=== PATIENT | male | born 1970 | race Caucasian/White ===

== ENCOUNTER 2021-12-04 14:49 | Emergency (ER) | payer SELFPAY ==
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
[2021-12-04 14:58] VITALS: BP 134/69; PULSE 82; RESP 16; TEMP 36.2; O2SAT 99
== END 2021-12-04 16:46 | disposition short-term general hospital (02) ==
PROVIDERS: Emergency Provider Nurse Practitioner Family
DX: S72.011A Unspecified intracapsular fracture of right femur, initial encounter for closed fracture (principal); V18.4XXA Pedal cycle driver injured in noncollision transport accident in traffic accident, initial encounter
CPT/HCPCS: 73502; 99213; G0463

== ENCOUNTER 2022-11-09 11:25 | Emergency (ER) | payer BC, SELFPAY ==
[2022-11-09 11:32] VITALS: BP 141/88; PULSE 81; RESP 20; TEMP 36.8; O2SAT 98
--- NOTE | 2022-11-09 11:44 | ED.LOWEXIN ---
HPI - Extremity Injury (Lower) General Chief Complaint: Extremity Injury, Lower Stated Complaint: Right Knee Pain Source: patient and RN notes reviewed History of Present Illness HPI Narrative: 51 yo M presents to urgent care with complaints of right knee pain and swelling x 2 weeks. Pt states he has been told in the past he has a hx of arthritis in this knee. Denies any recent injury or trauma. Denies any calf pain, calf swelling, fevers, chills, numbness, or tingling. Related Data Allergies Allergy/AdvReac Type Severity Reaction Status Date / Time No Known Allergies Allergy Verified 11/09/22 11:38 Review of Systems Review of Systems: Pertinent positives and pertinent negatives per HPI. PMFSH Comments At the time of my signature, I reviewed and agree with the nursing past medical, surgical, social, and family history. There is no relevant family history pertinent to the patient complaint. Exam Narrative: GENERAL: This is a well-nourished, well-developed patient, in no apparent distress. HEAD: normocephalic, atraumatic. EYES: Sclera clear/white. Vision is grossly intact. EARS: External ears normal, auditory canals clear and without drainage. Hearing grossly intact. NOSE: External nose normal with no obvious nasal discharge, nares without redness, no rhinorrhea. THROAT: Mucous membranes moist, posterior pharynx clear. NECK: Neck supple, non-tender without lymphadenopathy, masses or thyromegaly. CARDIOVASCULAR: Regular rate RESPIRATORY: No respiratory distress SKIN: warm, intact with no suspicious lesions or rash, good texture and turgor. NEURO: awake, alert, and oriented to person, place and time. There were no obvious focal neurologic abnormalities. EXTREMITIES: Mild edema noted to right medial knee. No specific tenderness noted. BACK: Nontender without deformity or crepitance. No flank tenderness. Course Course Level of Care: Express Care Visit Vital Signs Vital signs: Vital Signs Temperature 98.2 F 11/09/22 11:32 Pulse Rate 81 11/09/22 11:32 Respiratory Rate 20 11/09/22 11:32 Blood Pressure 141/88 H 11/09/22 11:32 Pulse Oximetry 98 11/09/22 11:32 Oxygen Delivery Room Air 11/09/22 11:32 Temperature 98.2 F 11/09/22 11:32 Pulse Rate 81 11/09/22 11:32 Respiratory Rate 20 11/09/22 11:32 Blood Pressure 141/88 H 11/09/22 11:32 Pulse Oximetry 98 11/09/22 11:32 Oxygen Delivery Room Air 11/09/22 11:32 Reviewed MDM - Extremity Injury (Lower) MDM Narrative Medical decision making narrative: Use the RICE method at home. May take ibuprofen with the Vicodin if needed. Take the prednisone as directed. If symptoms persist in 1 week after conservative treatment, follow-up with specialist. Differential Diagnosis Differential diagnosis: Likely acute internal derangement of knee and other (Arthritis, sprain) Critical Care Time Critical Care Time Critical Care Time: No Discharge Plan Discharge Clinical Impression: Osteoarthritis Qualifiers: Osteoarthritis location: knee Osteoarthritis type: unspecified Laterality: right Qualified Code(s): M17.11 - Unilateral primary osteoarthritis, right knee Patient Disposition: Home, Self-Care Condition: Stable Instructions: Antibiotic Form, Arthritis (ED) Additional Instructions: Use the RICE method at home. May take ibuprofen with the Vicodin if needed. Take the prednisone as directed. If symptoms persist in 1 week after conservative treatment, follow-up with specialist. Prescriptions: New hydrocodone-acetaminophen 5-325 mg tablet 1 tablet PO Q6H PRN (Reason: pain) Qty: 14 0RF prednisone 20 mg tablet 40 mg PO DAILY 5 Days Qty: 10 0RF Follow-up/Referrals: Geronimo Perez MD [Physician] - PHYSICIAN,GUEST LAUNDRY ATTENDANT [Primary Care Provider] - Time of Disposition: 11:51
[2022-11-09] MEDS: predniSONE 20 MG TABLET 60 MG PO (11:54)
== END 2022-11-09 12:02 | disposition home or self-care (01) ==
PROVIDERS: Emergency Provider Nurse Practitioner Family
DX: M17.11 Unilateral primary osteoarthritis, right knee (principal)
CPT/HCPCS: 99213; G0463; J7512

== ENCOUNTER 2024-07-13 11:35 | Emergency (ER) | payer BC, SELFPAY ==
[2024-07-13 11:47] VITALS: BP 137/81; PULSE 98; RESP 20; TEMP 37.9; O2SAT 99
--- NOTE | 2024-07-13 12:44 | ED_ITS ---
HPI - URI/Sore Throat General Chief Complaint: Upper Respiratory Infection Stated Complaint: Ear and throat Time Seen by Provider: 07/13/24 12:30 Source: patient, RN notes reviewed and old records reviewed Mode of arrival: ambulatory Limitations: no limitations History of Present Illness HPI Narrative: 53 year old male presents to [facility] care with complaints of right ear pain and sore throat which started yesterday. Patient reports that he has used some OTC ear drops for his ear pain but they really haven't helped. Patient reports that he has not taken any OTC medications for his pain, Patient reports that he thinks he has had some fever but has not taken his temperature or taken any Tylenol or Ibuprofen. Patient reports that it does hurt to swallow. MD elicited complaint: sore throat Onset (ago): day(s) (day 2 of symptoms) Pain scale (0-10): 8 Able to tolerate fluids by mouth: Yes Treatments prior to arrival: other (OTC ear drops) Related Data Allergies Allergy/AdvReac Type Severity Reaction Status Date / Time No Known Allergies Allergy Verified 07/13/24 11:54 Review of Systems Review of Systems: CONSTITUTIONAL: Reports malaise, chills, sweats, or fever. EYES: Denies visual changes, redness, or discharge. ENT: Reports some rhinorrhea, congestion,no sinus pain, right otalgia and positive sore throat. CARDIOVASCULAR: Denies chest pain, palpitations, or edema. RESPIRATORY: Reports no cough.? Denies dyspnea. GASTROINTESTINAL: Denies abdominal pain, nausea, vomiting, diarrhea SKIN: Denies rash or itching. MUSCULOSKELETAL: Denies myalgia. NEUROLOGIC: Denies headache. All systems reviewed & are unremarkable except as noted in HPI and below PMFSH Comments At time of signature, agree with nursing past medical, surgical, social and family history. There is no relevant family history pertinent to the presenting complaint Exam Narrative: GENERAL: Well-appearing, well-nourished, and in no acute distress. HEAD: Normocephalic EYES: PERRLA, conjunctivae clear ENT: Nares clear, turbinates edematous and erythematous, clear discharge. Mucous membranes moist. TM pearly george with dull light reflex bilaterally; no tragal tenderness. Oropharynx erythematous without lesions. Tonsils red enlarged and without exudate, no drooling, no hoarseness, no trismus, uvula midline.post nasal drainage NECK: Supple. lymphadenopathy CHEST: Clear to auscultation, breath sounds equal. No wheezing, rhonchi, rales, or stridor. No respiratory distress, speaks in full sentences.SAO2 99% on room air HEART: Regular rate and rhythm. No murmur heard. SKIN: Warm, dry, no rash. NEURO: Alert and oriented x3. PSYCH: Normal mood and affect Course Course Emergency Course: Patient is aware of diagnosis, understands and agrees to treatment plan.? Anticipatory guidance given.? Patient agrees to follow-up as directed and is aware of reasons to seek care at the emergency department. Portions of this record may have been created with voice recognition software Level of Care: Express Care Visit Vital Signs Vital signs: Vital Signs Temperature 37.9 C H 07/13/24 11:47 Pulse Rate 98 07/13/24 11:47 Respiratory Rate 20 07/13/24 11:47 Blood Pressure 137/81 07/13/24 11:47 Pulse Oximetry 99 07/13/24 11:47 Oxygen Delivery Room Air 07/13/24 11:47 Temperature 37.9 C H 07/13/24 11:47 Pulse Rate 98 07/13/24 11:47 Respiratory Rate 20 07/13/24 11:47 Blood Pressure 137/81 07/13/24 11:47 Pulse Oximetry 99 07/13/24 11:47 Oxygen Delivery Room Air 07/13/24 11:47 Reviewed MDM - URI/Sore Throat MDM Narrative Medical decision making narrative: Differential diagnosis considered: Beard virus, strep pharyngitis, allergic rhinitis, upper respiratory tract infection, sinusitis, rhinosinusitis, nasopharyngitis. viral pharyngitis, otitis media, otitis externa, pneumonia, bronchitis, viral cough syndrome, viral syndrome, and influenza.? Exam findings show no acute concerns or changes; patient is non-toxic appearing and is in no distress.? Patient is appropriate for outpatient treatment and follow-up. Differential Diagnosis Differential diagnosis: Likely upper respiratory infection, otitis media, viral infection, pharyngitis and other (strep pharyngitis) Medical Records Attestation: I reviewed the patient's medical records. Lab Data Attestation: I reviewed the patient's lab results. Lab results narrative: strep screen positive Labs: Lab Results 07/13/24 Range/Units 11:56 POC Grp A Strep Screen Positive (Negative) reviewed Critical Care Time Critical Care Time Critical Care Time: No Discharge Plan Discharge Clinical Impression: Strep pharyngitis Patient Disposition: Home, Self-Care Condition: Stable Instructions: Antibiotic Form, Strep Throat (DC) Additional Instructions: You tested positive for Group A strep . Take the entire course of antibiotics. Throw away your current toothbrush and begin using a new toothbrush in 48 hours in order to prevent re-infection. Sanitize all reusable water bottles . Do not share items with others. Salt water gargles may alleviate some of the throat discomfort. You can take Tylenol or ibuprofen per the package instructions for pain/fever. A Zyrtec, Shelia. Or Claritin daily If your symptoms persist, change or worsen significantly before you can contact your personal physician then please, without delay, go to the emergency department for further evaluation. Follow-up with PCP in 7-10 days or sooner if needed Follow up with PCP soon in regards to your blood pressure which is elevated above threshold for referral. Blood pressure above 120/80 may indicate pre- hypertension. Patient Language: Somali Prescriptions: New amoxicillin 500 mg capsule 1,000 mg PO Q12H 10 Days Qty: 40 0RF methylprednisolone [Medrol (Maxi)] 4 mg tablets,dose pack See Rx Instructions .ROUTE .COMPLEX Qty: 21 0RF Rx Instructions: orally per package directions take with food ibuprofen 600 mg tablet 600 mg PO QID PRN (Reason: fever or pain) Qty: 20 0RF Rx Instructions: up to 4 time daily for pain or fever Follow-up/Referrals: PHYSICIAN,NETWORK SECURITY ANALYST [Primary Care Provider] - Time of Disposition: 12:50 Quality Hailey Coma Scale Eyes: Open Verbal: Oriented and Alert Motor: Follows Commands Otis Coma Total Score: 15
[2024-07-13 12:58] LABS: EDSTREPNEGPOS1 Positive (Negative)
== END 2024-07-13 12:56 | disposition home or self-care (01) ==
PROVIDERS: Emergency Provider Registered Nurse
DX: J02.0 Streptococcal pharyngitis (principal)
CPT/HCPCS: 87880; 99213; G0463

== ENCOUNTER 2025-05-10 13:57 | Emergency (ER) | payer BC, SELFPAY ==
--- NOTE | ~2025-05-10 | XR_ITS ---
Clinical history:Thumb injury EXAM:X-ray finger first left minimum 2 views TECHNIQUE:3 images of the thumb were obtained. Comparisons: FINDINGS: [ No significant degenerative change.] [ No radiographic evidence for an acute fracture or dislocation.] [ No radiopaque foreign body.] [ No sclerotic bone lesions.] Soft tissue swelling about the thumb. Indeterminant 4 x 3 mm lucency in the tuft of the distal phalanx of the thumb. IMPRESSION: 1. No fracture identified. If symptoms persist or worsen consider a short-term follow-up study or additional imaging for further assessment. Reviewed, dictated and finalized at location Q. IMPRESSION: 1. No fracture identified. If symptoms persist or worsen consider a short-term follow-up study or addition al imaging for further assessment.
[2025-05-10 13:58] VITALS: BP 163/86; PULSE 74; RESP 18; TEMP 37.1; O2SAT 99
[2025-05-10] MEDS: TETANUS,DIPHTHERIA,AC PERTUSSIS ADULT 0.5 ML (ADACEL) IM (14:31)
[2025-05-10] MEDS: LIDOCAINE 1% LOCAL INJ 10 ML VIAL INFILTRATE (14:32)
--- OUTSIDE RECORDS SUMMARY | 2025-05-10 14:58 | XMS_ITS | Clinical Summary ---
Author Organization [facility] al Address [address] [place] [address] Care Team Providers Care Event Lighting Specialist Name Role Phone No, Physician Primary Care Provider [phone] Allergies No known active allergies Medications senna-docusate (PERICOLACE) 8.6-50 mgIndications:co nstipation Take 2 tablets by mouth 2 (two) times a day for 14 days 56 tablet 12/06/2021 Active apixaban (ELIQUIS) 2.5 mg tabletIndication s:VTE Prophylaxis Following Ortho Surgery Take 1 tablet (2.5 mg total) by mouth 2 (two) times a day 60 tablet 12/06/2021 Active Active Problems Problem Noted Date Diagnosed Date Closed displaced fracture of left femoral neck 0 12/05/2021 Social History Tobacco Use Types Packs/Day Years Used Date Smoking Tobacco: Former Alcohol Use Standard Drinks/Week Comments Yes 0 (1 standard drink = 0.6 oz pur e alcohol) occassionally Sex and Gender Information Value Date Recorded Sex Assigned at Not on file 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 Gender Identity Not on file Sexual Orientation Not on file Obstetrics History Last Filed Vital Signs Vital Sign Reading Time Taken Comments Blood Pressure 120/72 12/06/2021 9:50 AM CDT Pulse 106 12/06/2021 9:50 AM CDT Temperature 36.6 C (97.9 F) 12/06/2021 9:50 AM CDT Respiratory Rate 21 12/06/2021 9:50 AM CDT Oxygen Saturation 92% 12/06/2021 9:50 AM CDT Inhaled Oxygen Concentration - - Weight 83.9 kg (185 lb) 12/04/2021 7:48 PM CDT Height 177.8 cm (5' 10) 12/04/2021 7:48 PM CDT Body Mass Index 26.54 12/04/2021 7:48 PM CDT Plan of Treatment Not on file Medical Devices Implanted Type Area Maintenance Mechanic Device Identifier Shelf Expiration Date Model / Serial / Lot Synthes 7.3mm 8.2mm 2.9mm 95mm 32mm Cannulated Self Tap Self Drill 209.895 - [id number] Implanted:Qty: 1 on 12/05/2021 by Bree Goldstein MD at [facility] Right: Hip Synthes I 209.895 / / Synthes 209.690 7.3mm 8.2mm 2.9mm 90mm Cannulated Self Tap Self Drill - [id number] Implanted:Qty: 1 on 12/05/2021 by Bree Goldstein MD at [facility] Right: Hip Synthes I 209.690 / / Synthes 04.168.490s 90mm Antirotate Screw Bone Sterile Femoral Neck System - [id number] Implanted:Qty: 1 on 12/05/2021 by Bree Goldstein MD at [facility] Right: Hip Synthes I 04.168.490S / / Synthes 04.168.290s 90mm Alanson External Fixation Sterile Femoral Neck System - [id number] Implanted:Qty: 1 on 12/05/2021 by Bree Goldstein MD at [facility] Right: Hip Synthes I 04.168.290S / / Synthes 412.218s 5mm 48mm Self Tap Lock Stardrive T25 Screw Bone Titanium Sterile - [id number] Implanted:Qty: 1 on 12/05/2021 by Bree Goldstein MD at [facility] Right: Hip Synthes I 412.218S / / Synthes 04.168.0005 Plate 130d Ti Niobium Aluminum Fem Neck System 1 Hole Bone - [id number] Implanted:Qty: 1 on 12/05/2021 by Bree Goldstein MD at [facility] Right: Hip Synthes I 04.168.000S / / Insurance IDPA IDPA IDPA Advance Directives For more information, please contact: [phone] * Full Code (Latest Code Status on File) Date Activated Date Inactivated Comments 12/05/2021 8:57 PM 12/06/2021 5:19 PM Care Teams Event Lighting Specialist Relationship Specialty Start Date End Date No, Physician PCP - General 12/06/21
--- OUTSIDE RECORDS SUMMARY | 2025-05-10 14:58 | XMS_ITS | Clinical Summary ---
Author Organization [facility] Address [address] [place] [address] Phone Care Team Providers Care Bilingual Manager Name Role Phone Provider, None Primary Care Provider Unavailabl e Allergies No known active allergies Medications No known medications Social History Tobacco Use Types Packs/Day Years Used Date Smoking Tobacco: Every Day Cigarettes Smokeless Tobacco: Never Alcohol Use Standard Drinks/Week Comments Yes 0 (1 standard drink = 0.6 oz pur e alcohol) socially Sex and Gender Information Value Date Recorded Sex Assigned at Not on file Legal Sex Male 11:23 PM CDT Gender Identity Not on file Sexual Orientation Not on file Last Filed Vital Signs Vital Sign Reading Time Taken Comments Blood Pressure 146/87 09/23/2018 6:54 PM CINDER CRUSHER OPERATOR Pulse 87 09/23/2018 6:54 PM CINDER CRUSHER OPERATOR Temperature 37.2 C (99 F) 09/23/2018 5:10 PM CINDER CRUSHER OPERATOR Respiratory Rate 18 09/23/2018 6:54 PM CINDER CRUSHER OPERATOR Oxygen Saturation 97% 09/23/2018 6:54 PM CINDER CRUSHER OPERATOR Inhaled Oxygen Concentration - - Weight 86.2 kg (190 lb) 09/23/2018 5:10 PM CINDER CRUSHER OPERATOR Height 177.8 cm (5' 10) 09/23/2018 5:10 PM CINDER CRUSHER OPERATOR Body Mass Index 27.26 09/23/2018 5:10 PM CINDER CRUSHER OPERATOR Plan of Treatment Not on file Care Teams Bilingual Manager Relationship Specialty Start Date End Date Provider, None [place] PCP - General 09/23/18
--- NOTE | 2025-05-10 15:00 | ED.WOUNDLAC ---
HPI - Wound/Laceration General Chief Complaint: Wound/Laceration Stated Complaint: laceration to left thumb Time Seen by Provider: 05/10/25 14:06 Source: patient Mode of arrival: ambulatory Limitations: no limitations History of Present Illness HPI narrative: This is a 54-year-old male with no significant past medical history of present with laceration and avulsion injury to the left medial thumb area after he was using milder saw. No other injuries no numbness or tingling has good range of motion to his left thumb. Onset (ago): hour(s) Extremity Location: Left: hand (Laceration and avulsion of the skin left thumb) Place: home Patient tetanus UTD: No Context: accidental Related Data Home Medications ?Medication ?Instructions ?Recorded ?Confirmed ?Last Taken ?Type No Home Medications 05/10/25 05/10/25 Unknown History Allergies Allergy/AdvReac Type Severity Reaction Status Date / Time No Known Allergies Allergy Verified 05/10/25 14:12 Review of Systems Review of Systems: All systems reviewed & are unremarkable except as noted in HPI and below PMFSH Past Medical History Medical History Patient denies medical problems Exam Const: General: healthy appearing Nutritional Appearance: well nourished Orientation/consciousness: patient oriented x3 Limitations: no limitations Resp: Effort & Inspection: normal respiratory effort Auscultation: clear to auscultation bilaterally Cardio: Rate: regular rate Rhythm: regular rhythm GI: GI Palp: Yes Soft to palpation Auscultation: normal bowel sounds Skin: Wounds: wounds noted Other: Laceration to the medial left thumb with an avulsion injury to the skin Neuro: General: patient oriented x3 and moves all extremities Extrem: Other: Wounds noted to the left thumb Course Course Emergency Course: Medical decision making narrative: The patient was evaluated by myself in the emergency department. History obtained from patient who is an independent historian and physical exam performed in witnessed by nurse. Repeat assessment. Patient did have an x-ray performed which showed no acute injury to any bony structure. Patient had the area irrigated and no debris was was found. Patient had 10cc of lidocaine instilled into the laceration and avulsion area. Two sutures were placed in the laceration area and the rest was an avulsion injury and triple antibiotic ointment was administered. Patient was updated with his tetanus. Patient agrees with discussion after shared medical decision-making and agrees with discharge. All questions answered to the patient's satisfaction. Advised follow-up with his primary within 8 days for for suture removal. Vital Signs Vital signs: Vital Signs Temperature 37.1 C 05/10/25 13:58 Pulse Rate 74 05/10/25 13:58 Respiratory Rate 18 05/10/25 13:58 Blood Pressure 163/86 H 05/10/25 13:58 Pulse Oximetry 99 05/10/25 13:58 Oxygen Delivery Room Air 05/10/25 13:58 Temperature 37.1 C 05/10/25 13:58 Pulse Rate 74 05/10/25 13:58 Respiratory Rate 18 05/10/25 13:58 Blood Pressure 163/86 H 05/10/25 13:58 Pulse Oximetry 99 05/10/25 13:58 Oxygen Delivery Room Air 05/10/25 13:58 Procedures Laceration Laceration 1: Date: 05/10/25 Time: 15:04 Site: hand Side (If applicable): left Size (cm): 2 Description: linear and irregular Depth: simple, single layer Local Anesthetic: lidocaine 1% Amount of anesthesia used (mL): 10 Pre-repair: wound explored, irrigated and irrigated extensively ====== Skin Level ====== Skin layer closed with: vicryl Size (cm): 4-0 Number of sutures: 2 Technique: simple, interrupted ====== Subcutaneous Layer ====== ====== Muscle Layer ====== ====== Tendon Layer ====== Critical Care Time Critical Care Time Critical Care Time: No Discharge Plan Discharge Clinical Impression: Avulsion of skin, Laceration Patient Disposition: Home Condition: Stable Instructions: Antibiotic Form, Laceration (ED), Skin Avulsion (ED) Additional Instructions: Advised patient to follow with primary in 1 week for suture removal. Patient Language: Bhutanese Prescriptions: No Action No Home Medications Follow-up/Referrals: Saundra,SURESH Gutierrez [Primary Care Provider] Time of Disposition: 15:06
[2025-05-10] MEDS: NEOMYCIN/POLYMYXIN/BACITRACIN OINTMENT PACKET 1 PACKET TOPICAL (15:08)
--- OUTSIDE RECORDS SUMMARY | 2025-05-10 15:27 | XMS_ITS | Clinical Summary ---
Author Organization [facility] al Address [address] [place] [address] Care Team Providers Care Ball Mill Mixer Name Role Phone No, Physician Primary Care Provider [phone] Allergies No known active allergies Medications senna-docusate [...] on file Legal Sex Male 5:22 AM [employer] Gender Identity Not on file Sexual Orientation [...] on file Medical Devices Implanted Type Area Fish Drier Device Identifier Shelf Expiration Date Model / Serial / Lot Synthes 7.3mm 8.2mm 2.9mm 95mm 32mm Cannulated Self Tap Self Drill 209.895 - [id number] Implanted:Qty: 1 on 12/05/2021 by Bree Goldstein MD at [facility] Right: Hip Synthes I 209.895 / / Synthes 209.690 7.3mm 8.2mm 2.9mm 90mm Cannulated Self Tap Self Drill - [id number] Implanted:Qty: 1 on 12/05/2021 by Bree Goldstein MD at [facility] Right: Hip Synthes I 209.690 / / Synthes 04.168.490s 90mm Antirotate Screw Bone Sterile Femoral Neck System - [id number] Implanted:Qty: 1 on 12/05/2021 by Bree Goldstein MD at [facility] Right: Hip Synthes I 04.168.490S / / Synthes 04.168.290s 90mm [place] External Fixation Sterile Femoral Neck System - [id number] Implanted:Qty: 1 on 12/05/2021 by Bree Goldstein MD at [facility] Right: Hip Synthes I 04.168.290S / / Synthes 412.218s 5mm 48mm Self Tap Lock Stardrive T25 Screw Bone Titanium Sterile - [id number] Implanted:Qty: 1 on 12/05/2021 by Bree Goldstein MD at [facility] Right: Hip Synthes I 412.218S / / Synthes 04.168.0005 Plate 130d Ti Niobium Aluminum Fem Neck System 1 Hole Bone - [id number] Implanted:Qty: 1 on 12/05/2021 by Bree Goldstein MD at [facility] Right: Hip Synthes I 04.168.000S / / Insurance IDPA IDPA IDPA Advance Directives For more information, please contact: [phone] * Full Code (Latest Code Status on File) Date Activated Date Inactivated Comments 12/05/2021 8:57 PM 12/06/2021 5:19 PM Care Teams [employer] Mill Mixer Relationship Specialty Start Date End Date No, Physician PCP - General 12/06/21
--- OUTSIDE RECORDS SUMMARY | 2025-05-10 15:27 | XMS_ITS | Clinical Summary ---
Author Organization [facility] Address [address] [place] [address] Phone Care Team Providers Care Shore Man Name Role Phone Provider, None Primary Care [...] Comments Blood Pressure 146/87 09/23/2018 6:54 PM INFORMATICS APPLICATION ANALYST Pulse 87 09/23/2018 6:54 PM INFORMATICS APPLICATION ANALYST Temperature 37.2 C (99 F) 09/23/2018 5:10 PM INFORMATICS APPLICATION ANALYST Respiratory Rate 18 09/23/2018 6:54 PM INFORMATICS APPLICATION ANALYST Oxygen Saturation 97% 09/23/2018 6:54 PM INFORMATICS APPLICATION ANALYST Inhaled Oxygen Concentration - - Weight 86.2 kg (190 lb) 09/23/2018 5:10 PM INFORMATICS APPLICATION ANALYST Height 177.8 cm (5' 10) 09/23/2018 5:10 PM INFORMATICS APPLICATION ANALYST Body Mass Index 27.26 09/23/2018 5:10 PM INFORMATICS APPLICATION ANALYST Plan of Treatment Not on file Care Teams Shore Man Relationship Specialty Start Date End Date Provider, None [place] PCP - General 09/23/18
== END 2025-05-10 15:24 | disposition home or self-care (01) ==
PROVIDERS: Emergency Provider Emergency Medicine; PCP Physician Assistant
DX: S61.012A Laceration without foreign body of left thumb without damage to nail, initial encounter (principal); W27.0XXA Contact with workbench tool, initial encounter; Z23 Encounter for immunization
CPT/HCPCS: 12011; 73140; 90471; 90715; 99282; J2003